=== PATIENT | male | born 1985 | race Caucasian/White ===

== ENCOUNTER 2022-05-31 15:21 | Emergency (ER) | payer SELFPAY ==
[~2022-05-31] VITALS: Ht 190 cm; Wt 128.0 kg
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
[2022-05-31] MEDS ORDERED: IBUPROFEN 800 MG (MOTRIN) TAB PO ONE (16:00)
--- NOTE | 2022-05-31 16:18 | Diagnostic Imaging Report ---
CLINICAL INDICATION: Patient with old left shoulder injury which is recently hurting more. EXAM: X-ray of the left shoulder, three views. COMPARISON: None. FINDINGS: There is no acute fracture or dislocation. There is no significant bone or joint abnormality. The left acromioclavicular region is unremarkable. IMPRESSION: Unremarkable x-ray of the left shoulder. Dictated by: Dictated on workstation # [id number]
[2022-05-31 16:47] VITALS: BP 148/96
== END 2022-05-31 16:46 | disposition home or self-care (01) ==
LOC: ER 15:31
DX: S49.92XA Unspecified injury of left shoulder and upper arm, initial encounter (principal); F17.210 Nicotine dependence, cigarettes, uncomplicated; X58.XXXA Exposure to other specified factors, initial encounter
CPT/HCPCS: 73030

== ENCOUNTER 2022-10-27 15:26 | Emergency (ER) | payer SELFPAY ==
[~2022-10-27] VITALS: Ht 190.5 cm; Wt 116.5 kg
--- NOTE | 2022-10-27 15:43 | ED General ---
General Chief Complaint: Cough/Cold/Flu Symptoms Stated Complaint: BACK PAIN, FEVER, DIZZINESS, MIGRANE Nursing Triage Note: PT AMB RM 09 WITH CC OF FVER, BODY ACHES, COUGH, AND GUZMAN THAT STARTED ON TUESDAY EVENING. PT STATES THAT HIS LAST DOSE OF MOTRIN WAS AT 1300. Source of Information: Patient Exam Limitations: No Limitations History of Present Illness Date Seen by Provider: Oct 27, 2022 Time Seen by Provider: 15:42 Initial Comments This 37-year-old young man presents to the emergency room with flulike symptoms including fever, body aches, cough, dizziness, and headache that started on Tuesday, October 24. He is presently afebrile, mildly tachycardic and hypertensive. He last took ibuprofen around 1300. Last night he took someone else's Seroquel to help him sleep. He reports urinating excessively. He is not aware of any sick exposures. He appears ill but is not in any distress. Allergies and Home Medications Allergies Coded Allergies: No Known Drug Allergies (Unverified , 05/31/22) Patient Home Medication List Home Medication List Reviewed: Yes Review of Systems Review of Systems Constitutional: see HPI EENTM: see HPI Respiratory: see HPI Cardiovascular: see HPI Gastrointestinal: no symptoms reported Genitourinary: see HPI Musculoskeletal: see HPI Skin: no symptoms reported Psychiatric/Neurological: See HPI Hematologic/Lymphatic: No Symptoms Reported Immunological/Allergic: no symptoms reported Past Gutfdmx-Zlonmt-Athbhf Hx Patient Social History Tobacco Use?: Yes Tobacco type used: Cigarettes Substance use?: No Additional substance use comme: former Alcohol Use?: No Past Medical History Surgery/Hospitalization HX: HTN, SLEEP APNEA, APPE, T&A, LT KNEE SCOPE Surgeries: Yes Appendectomy, Orthopedic (Knee arthroscopy) Respiratory: Yes Sleep Apnea Cardiac: Yes Hypertension Neurological: No Reproductive Disorders: No Genitourinary: No Gastrointestinal: No Musculoskeletal: No Endocrine: No HEENT: No Cancer: No Psychosocial: No Integumentary: No Physical Exam Vital Signs Vital Signs - First Documented 10/27/22 15:33 Temp 38.9 Pulse 98 B/P (MAP) 162/97 (118) Pulse Ox 96 O2 Delivery Room Air Capillary Refill : Height, Weight, BMI Height: '" Weight: lbs. oz. kg; 32.00 BMI Method: General Appearance: WD/WN, Mild Distress (Generally ill appearing and uncomfortable) HEENT: PERRL/EOMI, TMs Normal, Normal ENT Inspection, Pharynx Normal, Other (Conjunctival erythema, swelling, and watery) Neck: Normal Inspection; No JVD Respiratory: Lungs Clear, Normal Breath Sounds, No Accessory Muscle Use, No Respiratory Distress Cardiovascular: No Edema, No Murmur, Tachycardia (Regular) Gastrointestinal: Normal Bowel Sounds, Non Tender, Soft Extremity: Normal Inspection Neurologic/Psychiatric: Alert, Oriented x3, Normal Mood/Affect Skin: Normal Color, Warm/Dry Progress/Results/Core Measures Suspected Sepsis SIRS Temperature: Pulse: 98 Respiratory Rate: Blood Pressure 162 /97 Mean: 118 Results/Orders Lab Results Laboratory Tests Test 10/27/22 15:41 10/27/22 16:54 Range/Units Influenza Type A (RT-PCR) Not Detected Not Detecte Influenza Type B (RT-PCR) Not Detected Not Detecte SARS-CoV-2 RNA (RT-PCR) Detected H Not Detecte Urine Color YELLOW Urine Clarity CLEAR Urine pH 6.0 5-9 Urine Specific [place] 1.025 H 1.016-1.022 Urine Protein 1+ H NEGATIVE Urine Glucose (UA) NEGATIVE NEGATIVE Urine Ketones TRACE H NEGATIVE Urine Nitrite NEGATIVE NEGATIVE Urine Bilirubin 1+ H NEGATIVE Urine Urobilinogen 1.0 < = 1.0 MG/DL Urine Leukocyte Esterase NEGATIVE NEGATIVE Urine RBC (Auto) 2+ H NEGATIVE Urine RBC 2-5 H /HPF Urine WBC 0-2 /HPF Urine Squamous Epithelial Cells 5-10 /HPF Urine Crystals PRESENT H /LPF Urine Calcium Oxalate Crystals FEW H /LPF Urine Bacteria FEW H /HPF Urine Casts PRESENT /LPF Urine Hyaline Casts 5-10 H /LPF Urine Mucus LARGE H /LPF Urine Culture Indicated NO My Orders Orders - TEE MORATAYA MD Covid 19 Inhouse Test (10/27/22 15:42) Influenza A And B By Pcr (10/27/22 15:42) Ua Culture If Indicated (10/27/22 16:17) Vital Signs/I&O 10/27/22 10/27/22 15:33 17:34 Temp 38.9 Pulse 98 B/P (MAP) 162/97 (118) 148/102 Pulse Ox 96 O2 Delivery Room Air Capillary Refill : Blood Pressure Mean: 118 Progress Note : Progress Note Swabs were positive for COVID-19. Urinalysis revealed concentrated urine likely suggesting hypovolemia. Urine had high specific gravity, crystals present, and trace ketones. See discharge instructions for further discussion. Departure Impression Primary Impression: COVID-19 Disposition: 01 HOME, SELF-CARE Condition: Stable Departure-Patient Inst. Decision time for Depature: 16:31 Referrals: NO,LOCAL PHYSICIAN (PCP/Family) Primary Care Physician Patient Instructions: COVID-19 ED Add. Discharge Instructions: Drink plenty of clear liquids to stay well-hydrated. Your urine was concentrated suggesting you are not getting enough liquids during this illness. For fever and pain you may take ibuprofen up to 600 mg every 6 hours as well as Tylenol (acetaminophen) up to 1000 mg every 6 hours as needed. If you need help sleeping, try using Benadryl (diphenhydramine) 25 to 50 mg at bedtime or doxylamine (Unisom) 25 to 50 mg at bedtime. Do not use medications prescribed to others. You should quarantine for an additional 3 days. You may come out of quarantine on October 31 if your symptoms are significantly improved. It is recommended that you mask for an additional 5 days after you are out of quarantine. Return to care if you have worsening symptoms despite following these instructions. All discharge instructions reviewed with patient and/or family. Voiced understanding. TEE MORATAYA MD Oct 27, 2022 15:43
[2022-10-27 17:20] LABS: BILIRUBIN,URINE 1+ (NEGATIVE); CLARITY,URINE CLEAR; COLOR,URINE YELLOW; GLUCOSE, URINE (UA) NEGATIVE (NEGATIVE); KETONES,URINE TRACE (NEGATIVE); LEUKOCYTE ESTERASE ,URINE NEGATIVE (NEGATIVE); NITRITE,URINE NEGATIVE (NEGATIVE); PROTEIN,URINE 1+ (NEGATIVE); WBC,URINE 0-2 /HPF
[2022-10-27 17:21] LABS: BACTERIA,URINE FEW /HPF; CALCIUM OXALATE CRYSTALS,UR FEW /LPF
[2022-10-27 17:34] VITALS: BP 148/102
== END 2022-10-27 17:37 | disposition home or self-care (01) ==
LOC: EDUNIT# 15:26 → ER 15:29
DX: U07.1 COVID-19 (principal); R50.9 Fever, unspecified; R42 Dizziness and giddiness; R51.9 Headache, unspecified; R05.9 Cough, unspecified; F17.210 Nicotine dependence, cigarettes, uncomplicated
CPT/HCPCS: 81000; 87636; 99283